=== PATIENT | male | born 1965 ===

== ENCOUNTER 2016-09-16 20:16 | Emergency (ER) | payer MEDICAID ==
[2016-09-16 20:23] VITALS: BMI 32.2
[2016-09-16 20:27] VITALS: PULSE 86; TEMP 98.3
[2016-09-16 20:30] VITALS: BP 138/85; O2SAT 96
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
[2016-09-16 22:06] VITALS: RESP 20
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
== END 2016-09-16 22:05 | disposition home or self-care (01) ==
LOC: C.ER 20:16 → SUPCPDRO 20:16 → C.ER 22:05
DX: S39.92XA Unspecified injury of lower back, initial encounter (principal); V43.52XA Car driver injured in collision with other type car in traffic accident, initial encounter; Y92.410 Unspecified street and highway as the place of occurrence of the external cause